=== PATIENT | female | born 1960 | race Caucasian/White ===

== ENCOUNTER 2020-06-15 13:07 | Inpatient (IN) | payer BC, OTHER ==
[~2020-06-15] VITALS: Ht 152.4 cm; Wt 74.4 kg
[2020-06-15] MEDS ORDERED: AZITHROMYCIN 500MG/NS 250 ML 250 ML IV STA (13:14)
[2020-06-15] MEDS ORDERED: CEFTRIAXONE SOD 1 GM/NS 50 ML 50 ML IV SCH (13:15)
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
[2020-06-15 13:53] LABS: BASOPHILS % 0.2 % (0.0-1.0); HEMATOCRIT 43.3 % (34.2-44.1); HEMOGLOBIN 13.9 g/dL (12.0-16.0); LYMPHOCYTES # (AUTO) 0.7 (1.0-3.2); LYMPHOCYTES % 7.7 % (18.0-39.1); MEAN CORPUSCULAR HEMOGLOBIN 28.4 pg (28-32); MEAN CORPUSCULAR HGB CONC 32.1 g/dL (31-35); MEAN CORPUSCULAR VOLUME 88.4 fL (81-99); MONOCYTES # (AUTO) 0.1 (0.2-0.8); MONOCYTES % 1.5 % (4.4-11.3); NEUTROPHILS # (AUTO) 7.6 (2.1-6.9); NEUTROPHILS % 89.8 % (38.7-80.0); PLATELET COUNT 259 x10e3/uL (140-360); RED CELL DISTRIBUTION WIDTH 14.5 % (11.7-14.4)
[2020-06-15 14:19] LABS: ALANINE AMINOTRANSFERASE 57 IU/L (0-55); ALBUMIN 3.6 g/dL (3.5-5.0); ALBUMIN/GLOBULIN RATIO 0.9 (0.8-2.0); ALKALINE PHOSPHATASE 92 IU/L (40-150); ANION GAP 17.8 mmol/L (8-16); BLOOD UREA NITROGEN 12 mg/dL (7-26); BUN/CREATININE RATIO 15 (6-25); CALCIUM 9.4 mg/dL (8.4-10.2); CARBON DIOXIDE 25 mmol/L (22-29); CHLORIDE 101 mmol/L (98-107); CREATINE KINASE 267 IU/L (29-168); CREATININE, SERUM 0.78 mg/dL (0.57-1.11); EST GLOMERULAR FILTRATION RATE > 60 ML/MIN (60-); GLUCOSE 115 mg/dL (74-118); POTASSIUM 3.8 mmol/L (3.5-5.1); SODIUM 140 mmol/L (136-145)
[2020-06-15] MEDS ORDERED: AZITHROMYCIN 250MG/NS 100 ML 100 ML IV SCH (14:30)
--- NOTE | 2020-06-15 14:47 | Diagnostic Imaging Report ---
X-ray chest frontal view History: Covid positive Comparison: None Findings: Lines and tubes: Not applicable Central airways: Unremarkable Cardiac silhouette: Unremarkable Mediastinal silhouettes: Unremarkable Pleura: No pleural effusion, pneumothorax or thickening Diaphragms: Unremarkable Lungs: . Patchy opacities predominantly in the right lower lung zone and peripherally are visualized. There is also prominence of the interstitial markings in the right perihilar zone. Skeletal structures: Unremarkable Extrathoracic soft tissues: Unremarkable Impression: Findings consistent with pneumonitis. Signed by: Truman Hwang MD on 06/15/2020 2:44 PM
[2020-06-15 16:28] VITALS: BP 124/76
[2020-06-15 16:37] VITALS: BP 124/74
[2020-06-15] MEDS ORDERED: ENOXAPARIN SOD INJ 40 MG/0.4 ML SYR SC ONE (17:15)
[2020-06-15] MEDS: ASCORBIC ACID 500 MG TAB PO SCH (18:38)
[2020-06-15] MEDS ORDERED: IOPAMIDOL 370 MG/ML 200 ML INFUS..BTL INJ ONE (18:38)
[2020-06-15] MEDS ORDERED: SODIUM CHLORIDE 0.9% 50ML 50 ML ONE (18:38)
--- NOTE | 2020-06-15 18:56 | Diagnostic Imaging Report ---
EXAM: CT Chest WITH contrast 06/15/2020 5:20 PM INDICATION: Shortness of breath suspicious for pulmonary embolism. COMPARISON: Same day chest x-ray. TECHNIQUE: Chest was scanned utilizing a multidetector helical scanner from the lung apex through the level of the adrenal glands with administration of IV contrast. Coronal and sagittal reformations were obtained. Routine protocol was performed. IV CONTRAST: 100 mL of Omnipaque 300 COMPLICATIONS: None RADIATION DOSE: Total DLP: 1275 mGy*cm Estimated effective dose: (DLP x 0.014 x size factor) mSv CTDIvol has been reviewed. It is below the limits set by the Radiation Protocol Committee (RPC). Dose modulation, iterative reconstruction, and/or weight based adjustment of the mA/kV was utilized to reduce the radiation dose to as low as reasonably achievable. FINDINGS: LINES/ TUBES: None. VASCULAR: There are no filling defects within the pulmonary arteries to the segmental level. The pulmonary trunk has normal caliber measuring 2.3 cm. The ascending and descending aorta have normal enhancement and caliber measuring 3.2 cm and 2.2 cm, respectively. There is mild atherosclerotic calcification of the thoracic aortic arch. LUNGS AND AIRWAYS: There is multifocal patchy groundglass opacities throughout both lungs superimposed bibasilar atelectasis. The central airways are patent. PLEURA: The pleural spaces are clear. HEART AND MEDIASTINUM: The thyroid gland is normal. No mediastinal, hilar or axillary lymphadenopathy. The heart is normal in size. There is no pericardial effusion. UPPER ABDOMEN: Unremarkable. BONES: There are mild degenerative changes in the thoracic spine. SOFT TISSUES: Unremarkable. IMPRESSION: 1. No evidence of pulmonary embolism to the segmental level. 2. Multifocal patchy groundglass opacities throughout both lungs compatible with multifocal pneumonia, likely viral. Signed by: Gordon Kumar MD on 06/15/2020 6:52 PM
[2020-06-15] MEDS ORDERED: ALBUTEROL/IPRATROPIUM 3 ML NEB NEB SCH (19:00)
[2020-06-15] MEDS ORDERED: DEXAMETHASONE4 MG PO (19:12)
[2020-06-15] MEDS ORDERED: ABILIFY5 MG PO (19:12)
[2020-06-15] MEDS ORDERED: MULTI-VITAMIN1 EACH (19:12)
[2020-06-15] MEDS ORDERED: ALPRAZOLAM1 MG PO (19:12)
[2020-06-15] MEDS ORDERED: ADDERALL 30 MG30 MG (19:12)
[2020-06-15] MEDS ORDERED: AMBIEN10 MG PO (19:12)
--- NOTE | 2020-06-15 19:17 | Diagnostic Imaging Report ---
Examination: CT head without contrast Clinical Indication: ^FOLLOW UP ON TRAUMA ^[id number] ^[id number] Technique: Transaxial noncontrast images from the skull base through the vertex were obtained. Sagittal and coronal reformatted images were done. Comparison: 03/04/2013. Findings: Scalp: No abnormalities. Bones: Intact. No fractures. No blastic or lytic lesions. Brain sulci: Appropriate for patient's age. Ventricles: Normal in size and configuration. No hydrocephalus. Parenchyma: No abnormal densities. No masses, hemorrhage, or acute vascular insults. Extra-axial spaces: No abnormal density or fluid collection. Suprasellar region: No abnormalities. Craniocervical junction: The foramen magnum is patent. No Chiari one malformation. Incidental findings: None. Impression: No new acute intracranial finding when compared to prior head CT dated 03/04/2013. Signed by: Dr. Tracy Ledesma M.D. on 06/15/2020 7:14 PM
--- NOTE | 2020-06-15 19:20 | NUR ---
Bedside shift report received from day nurse. Pt sitting up in bed. Pt denies pain or discomfort at this time. No distress noted. Instructed pt to call for help. Call light within reach.
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
[2020-06-15] MEDS ORDERED: ZOLPIDEM TARTRATE 10 MG TAB PO PRN (20:00)
--- NOTE | 2020-06-15 20:00 | NUR ---
Spoke with Dr. Lantigua at 1999. Notified Dr. Lantigua of elevated Lactic Acid level. Also notified Dr. Lantigua of CXR, Chest CT, and Brain CT results. New orders received to draw 0500 CBC, CMP, Magnesium, and Lactic Acid level. Pt requested to take her own Ambien at bedtime; Per Dr. Lantigua, it is ok for pt to take her own Ambien per his orders as follows: Ambien 10mg PO QHS PRN Insomnia.
--- NOTE | 2020-06-15 20:45 | NUR ---
Pt c/o right AC IV site itching that she r/t the dressing/tape. Dressing and tape removed, new dressing and tape applied to site. Bruising/redness noted around IV site; Pt states that it has been that way. IV flushed with 10mL NS; IV patent, pt denies pain, burning, or other discomforts at this time.
[2020-06-15 20:58] VITALS: BP 117/71
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
[2020-06-15 22:14] LABS: CREATINE KINASE MB 2.2 ng/mL (0-5.0)
--- NOTE | 2020-06-15 22:32 | NUR ---
Order for Sputum Culture noted in orders. Cup given to pt and instructed on collection of sputum culture. Pt will notify us when she has a sample.
[2020-06-15 23:52] VITALS: BP 126/77
[2020-06-16] VITALS (10 sets, daily range): BP systolic 70–143; BP diastolic 52–86
--- NOTE | 2020-06-16 00:46 | NUR ---
Pt provided sputum sample. Sputum sample delivered to lab.
[2020-06-16] MEDS: IPRATROPIUM/ALBUTEROL SULFATE 4 GM INH INH SCH ×4 (01:00→19:53)
[2020-06-16 04:59] LABS: BASOPHILS % 0.1 % (0.0-1.0); EOSINOPHILS % 0.1 % (0.0-6.0); HEMATOCRIT 38.7 % (34.2-44.1); HEMOGLOBIN 12.7 g/dL (12.0-16.0); LYMPHOCYTES # (AUTO) 1.4 (1.0-3.2); MEAN CORPUSCULAR HEMOGLOBIN 28.9 pg (28-32); MEAN CORPUSCULAR HGB CONC 32.8 g/dL (31-35); MEAN CORPUSCULAR VOLUME 88.2 fL (81-99); MONOCYTES # (AUTO) 0.2 (0.2-0.8); MONOCYTES % 2.5 % (4.4-11.3); NEUTROPHILS # (AUTO) 5.9 (2.1-6.9); NEUTROPHILS % 78.4 % (38.7-80.0); PLATELET COUNT 247 x10e3/uL (140-360); RED BLOOD COUNT 4.39 x10e6/uL (3.6-5.1)
[2020-06-16 05:17] LABS: ALANINE AMINOTRANSFERASE 47 IU/L (0-55); ALBUMIN/GLOBULIN RATIO 0.8 (0.8-2.0); ALKALINE PHOSPHATASE 81 IU/L (40-150); ANION GAP 15.8 mmol/L (8-16); BLOOD UREA NITROGEN 14 mg/dL (7-26); BUN/CREATININE RATIO 20 (6-25); CARBON DIOXIDE 24 mmol/L (22-29); CHLORIDE 103 mmol/L (98-107); CREATININE, SERUM 0.69 mg/dL (0.57-1.11); EST GLOMERULAR FILTRATION RATE > 60 ML/MIN (60-); GLUCOSE 117 mg/dL (74-118); MAGNESIUM 2.1 MG/DL (1.3-2.1); POTASSIUM 3.8 mmol/L (3.5-5.1); SODIUM 139 mmol/L (136-145)
--- NOTE | 2020-06-16 05:40 | NUR ---
Dr. Lantigua at bedside talking with pt about her POC.
[2020-06-16 05:51] LABS: CREATINE KINASE MB 2.2 ng/mL (0-5.0)
[2020-06-16] MEDS: ALPRAZOLAM 1 MG TAB PO SCH ×3 (06:25→17:09)
--- NOTE | 2020-06-16 07:55 | NUR ---
RECEIVED PATIENT RESTING IN BED. PT IN NO DISTRESS. NO C/O PAIN VERBALIZED AT THIS TIME. TELE APPLIED. CALL LIGHT WITHIN REACH. WILL CONTINUE TO MONITOR.
[2020-06-16] MEDS: ASCORBIC ACID 500 MG TAB PO SCH ×2 (08:00→17:09)
[2020-06-16] MEDS: CEFTRIAXONE SOD 2 GM/NS 100 ML 100 ML IV SCH (08:00)
[2020-06-16] MEDS: ZINC SULFATE 220 MG CAP PO SCH (08:00)
--- NOTE | 2020-06-16 08:35 | History and Physical ---
REASON FOR ADMISSION: 1. COVID-19 pneumonia. 2. Acute respiratory failure with hypoxia. HISTORY OF PRESENT ILLNESS: The patient is a 60-year-old lady who was diagnosed probably as an outpatient with COVID-19, who unfortunately started having worsening shortness of breath and saturations in the mid 80%, so she was brought in and admitted for further evaluation and treatment. PAST MEDICAL HISTORY: Significant for attention deficit disorder and anxiety disorder. MEDICATIONS: See MAR. ALLERGIES: NONE. SOCIAL HISTORY: Lives at home with her . Nonsmoker, nondrinker. FAMILY HISTORY: Hypertension. PHYSICAL EXAMINATION: VITAL SIGNS: Temperature 98.6, blood pressure 136/74, pulse 74, sats 92% on room air. GENERAL: She does not appear to be in respiratory distress at this moment. NECK: Supple. CARDIOVASCULAR: Regular rate and rhythm. LUNGS: Bilateral rhonchi noted. ABDOMEN: Good bowel sounds. Soft, nontender. EXTREMITIES: No clubbing or cyanosis. NEUROLOGIC: Nonfocal. ASSESSMENT/PLAN: 1. COVID-19 pneumonia. We will consult Infectious Disease. Continue with antibiotics. 2. Acute respiratory failure with hypoxia. We will continue to monitor. Pulmonary has been evaluating her. 3. Anxiety disorder. Continue with her Xanax. 4. Attention deficit disorder. We will continue to monitor at this time and hold off her medication. Please see hospital chart for full details. MD ALEXANDRA Casanova/LORY /[id number]
[2020-06-16] MEDS ORDERED: ZINC SULFATE 50 MG CAP PO SCH (09:00)
[2020-06-16] MEDS: AZITHROMYCIN 500MG/NS 250 ML 250 ML IV SCH (09:00)
--- NOTE | 2020-06-16 09:34 | Diagnostic Imaging Report ---
EXAMINATION: CHEST SINGLE (PORTABLE) INDICATION: Viral pneumonia COMPARISON: Chest radiograph 06/15/2020, chest CT 06/15/2020 FINDINGS: LINES/TUBES:EKG leads overlie the chest. LUNGS:The lungs are moderately inflated. Unchanged bilateral lower lung predominant hazy opacities. PLEURA:No pleural effusion or pneumothorax. MEDIASTINUM:The cardiomediastinal silhouette appears normal in size and shape. BONES/SOFT TISSUES:No acute osseous injury. ABDOMEN:No free air under the diaphragm. IMPRESSION: Unchanged bilateral lower lung predominant hazy opacities correspond with groundglass opacity seen on CT, in keeping with clinical history of viral pneumonia. Signed by: Yo Jackson MD on 06/16/2020 9:30 AM
--- NOTE | 2020-06-16 12:55 | NUR ---
SPOKE TO JUAN RAMON COLEY PAGE TO DR. ROBERT. PT COMPLAINS OF MINIMAL NAUSEA AND 4/10 INTERMITTENT HEADACHE.
[2020-06-16 14:16] LABS: CREATINE KINASE 211 IU/L (29-168)
[2020-06-16] MEDS: TRAMADOL HCL 50 MG TAB PO PRN ×2 (14:24→14:58)
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
[2020-06-16] MEDS ORDERED: ENOXAPARIN SOD INJ 40 MG/0.4 ML SYR SC SCH (17:00)
--- NOTE | 2020-06-16 18:50 | NUR ---
PATIENT IN STABLE CONDITION. PT IN NO DISTRESS. RESPIRATIONS EVEN AND BREATHING UNLABORED. NO C/O PAIN VERBALIZED AT THIS TIME. REPORT GIVEN TO ONCOMING NURSE. Addendum: 06/16/20 at 1908 by Janiya Olivas RN TELE APPLIED.
--- NOTE | 2020-06-16 19:10 | NUR ---
Bedside shift report received from day shift nurse. Pt sitting up in bed. Pt denies pain or discomfort at this time. No distress noted. Instructed pt to call for assistance when needed. Call light within reach.
[2020-06-16] MEDS: ARIPIPRAZOLE 5 MG TABLET PO SCH (20:19)
--- NOTE | 2020-06-16 20:43 | NUR ---
Pt's BP 70/56, Temperature 102.7; Vitals taken again at 2054 with same machine-BP 96/52, Temperature 99.0.
[2020-06-16] MEDS: ENOXAPARIN SOD INJ 40 MG/0.4 ML SYR SC SCH (20:50)
--- NOTE | 2020-06-16 21:00 | NUR ---
Notified Dr. Lantigua of pt's low BP and elevated temperature. Also informed Dr. Lantigua that pt is drowsy and not as alert as she had been previously but sluggishly responds to verbal stimuli. Informed Dr. Lantigua that pt's skin appears red and is warm to touch. New orders received from Dr. Lantigua as follows: Give NS 500mL bolus now STAT x1; Give Tylenol 650mg PO x1 dose now STAT for fever and every [address] Lantigua continue to monitor pt.
[2020-06-16] MEDS ORDERED: ACETAMINOPHEN 650 MG SUPP PR ONE (21:01)
[2020-06-16] MEDS ORDERED: SODIUM CHLORIDE 0.9% 1000ML 1,000 ML ONE (21:01)
[2020-06-16] MEDS ORDERED: ACETAMINOPHEN 325 MG TAB ONE (21:02)
[2020-06-16] MEDS ORDERED: SODIUM CHLORIDE 0.9% 500ML 500 ML IV STA (21:03)
--- NOTE | 2020-06-16 21:13 | NUR ---
Informed pt of new orders received from Dr. Lantigua and educated pt regarding orders. NS 500mL bolus started via right forearm peripheral IV as ordered.
[2020-06-16] MEDS: ACETAMINOPHEN 325 MG TAB PO PRN (21:24)
--- NOTE | 2020-06-16 21:24 | NUR ---
Tylenol 650mg PO given for fever as ordered by Dr. Lantigua.
[2020-06-17] VITALS (9 sets, daily range): BP systolic 89–128; BP diastolic 57–78
--- NOTE | 2020-06-17 | NUR ---
0000 scheduled Alprazolam held r/t vital signs and drowsiness. 0000 Vitals are as follows: BP 94/73, Respirations 24, Pulse 85, Temperature 98.1, O2 Sats 91% on 2L/NC. Pt denies SOB but states she is sleepy. Pt is intermittently confused. Pt asked if she was moved to another room, then suddenly she knew exactly where she was. When asked at this time, pt stated she did not know what or where the call light was or how to use it. Re-educated pt and re-oriented pt to room and surroundings. Instructed pt to use call light as a test-Pt demonstrated back. Instructed pt to call if she needs any assistance and not to get up without calling for help/assistance.
[2020-06-17] MEDS: IPRATROPIUM/ALBUTEROL SULFATE 4 GM INH INH SCH ×4 (01:00→18:31)
--- NOTE | 2020-06-17 04:00 | NUR ---
Pt alert and oriented to person, place, and time. Pt denies pain or discomfort. Pt denies SOB. Pt is able to carry on a full conversation with oxygen saturation at 90% or greater. Pt c/o cough since waking. Pt states she remembers having periods of confusion last night. Pt is inquiring about how much longer she will have to stay in the hospital. Instructed pt to verbalize her concerns to Dr. Lantigua as he will have a more accurate response. Pt verbalized understanding and denies other further questions or concerns at this time. Addendum: 06/17/20 at 0433 by JUSTIN PETERSON RN Amended: Links added.
--- NOTE | 2020-06-17 05:27 | NUR ---
Dr. Lantigua at bedside to discuss POC with pt.
[2020-06-17] MEDS: ALPRAZOLAM 1 MG TAB PO SCH ×4 (05:50→17:25)
--- NOTE | 2020-06-17 07:00 | NUR ---
REPORT RECEIVED FROM KINDERGARTEN INSTRUCTIONAL ASSISTANT RN.
--- NOTE | 2020-06-17 08:00 | NUR ---
PT HAD A TEMP OF 101 THIS AM. TYLENOL GIVEN FOR TEMP./
[2020-06-17] MEDS ORDERED: CEPACOL SORE THROAT LOZENGES PO PRN (08:30)
[2020-06-17] MEDS ORDERED: CHLORASEPTIC SPRAY 177 ML BTL MM PRN (09:00)
[2020-06-17 09:03] LABS: BASOPHILS % 0.1 % (0.0-1.0); EOSINOPHILS % 0.1 % (0.0-6.0); HEMATOCRIT 41.2 % (34.2-44.1); HEMOGLOBIN 13.1 g/dL (12.0-16.0); LYMPHOCYTES # (AUTO) 1.7 (1.0-3.2); LYMPHOCYTES % 24.2 % (18.0-39.1); MEAN CORPUSCULAR HEMOGLOBIN 28.7 pg (28-32); MEAN CORPUSCULAR HGB CONC 31.8 g/dL (31-35); MEAN CORPUSCULAR VOLUME 90.4 fL (81-99); MONOCYTES # (AUTO) 0.1 (0.2-0.8); MONOCYTES % 1.4 % (4.4-11.3); NEUTROPHILS # (AUTO) 5.1 (2.1-6.9); NEUTROPHILS % 72.8 % (38.7-80.0); PLATELET COUNT 246 x10e3/uL (140-360); RED BLOOD COUNT 4.56 x10e6/uL (3.6-5.1); RED CELL DISTRIBUTION WIDTH 14.6 % (11.7-14.4)
--- NOTE | 2020-06-17 09:04 | Diagnostic Imaging Report ---
TECHNIQUE: Frontal view of the chest. INDICATION: ^CAP ^[id number] ^[id number] COMPARISON: Prior day. DISCUSSION: Limited evaluation due to portable technique. Lines and hardware: Overlying EKG leads are again noted. Heart and mediastinum: Stable. Lungs and pleura: Stable bilateral lower lobe prominent hazy airspace opacities. Negative for large effusion or pneumothorax. Soft tissues and bones: No acute abnormality. IMPRESSION: Stable exam. Signed by: Silvestre Millard MD on 06/17/2020 9:01 AM
[2020-06-17 09:22] LABS: ALANINE AMINOTRANSFERASE 41 IU/L (0-55); ALBUMIN 2.8 g/dL (3.5-5.0); ALBUMIN/GLOBULIN RATIO 0.7 (0.8-2.0); ALKALINE PHOSPHATASE 83 IU/L (40-150); ANION GAP 13.9 mmol/L (8-16); BLOOD UREA NITROGEN 11 mg/dL (7-26); BUN/CREATININE RATIO 15 (6-25); CALCIUM 8.7 mg/dL (8.4-10.2); CARBON DIOXIDE 25 mmol/L (22-29); CHLORIDE 102 mmol/L (98-107); CREATININE, SERUM 0.75 mg/dL (0.57-1.11); EST GLOMERULAR FILTRATION RATE > 60 ML/MIN (60-); GLUCOSE 89 mg/dL (74-118); POTASSIUM 3.9 mmol/L (3.5-5.1); SODIUM 137 mmol/L (136-145)
[2020-06-17] MEDS: AZITHROMYCIN 500MG/NS 250 ML 250 ML IV SCH (09:43)
[2020-06-17] MEDS: CEFTRIAXONE SOD 2 GM/NS 100 ML 100 ML IV SCH (09:43)
[2020-06-17] MEDS: ZINC SULFATE 220 MG CAP PO SCH (09:43)
[2020-06-17] MEDS: ASCORBIC ACID 500 MG TAB PO SCH ×2 (09:43→17:25)
[2020-06-17] MEDS: DEXAMETHASONE SOD PHOS INJ 4 MG/ML VIAL IV SCH (12:00)
--- NOTE | 2020-06-17 12:08 | Progress Note ---
DATE: SUBJECTIVE: Ms. Morgan is doing about the same, comfortable. She had a fever of 101 earlier. She is still on oxygen, it is up to 3 L. No new complaints. The patient remains on azithromycin, Rocephin, Tylenol, Ultram, ascorbic acid, and Lovenox. Her blood cultures are pending. Chest x-ray shows stable bilateral lobe hazy airspace zone. OBJECTIVE: GENERAL: Currently, alert and oriented. VITAL SIGNS: Stable, currently afebrile, but had fever earlier. HEENT: She is not icteric. NECK: Supple. CHEST: Crackles bilateral. COR: S1 and S2. ABDOMEN: Soft. Bowel sounds present. EXTREMITIES: No edema. SKIN: No rash. IMPRESSION AND PLAN: Hypoxemic today. We will start dexamethasone. We will follow. MD MYNOR Castle/LORY /[id number]
[2020-06-17] MEDS: TRAMADOL HCL 50 MG TAB PO PRN (17:26)
--- OUTSIDE RECORDS SUMMARY | 2020-06-17 19:03 | XMS REPORT | Clinical Summary ---
Author Author [facility] Address Unknown Phone Unavailable Care Team Providers Care Forensic Science Examiner Name Role Phone PCP Unavailable Allergies Not on File Medications Not on file Active Problems Not on file Social History Date Tobacco Use Types Packs/Day Years Used Never Assessed Sex Assigned at Date Recorded Not on file Last Filed Vital Signs Not on file Plan of Treatment Not on file Results Not on fileafter 06/15/2019 Insurance Type Payer Benefit Subscriber ID Effective Phone Address Plan / Dates Group HMO/POS [employer] - MGD CARE CIGNA [facility] [id number] NETWORK resent
--- NOTE | 2020-06-17 19:15 | NUR ---
SBAR RECEIVED FROM DAYSHIFT RN, PATIENT RESTING IN BED. PT IN NO DISTRESS. NO C/O PAIN VERBALIZED AT THIS TIME. TELE IN PLACE AND ACTIVE, REMAIN ON DROPLET PRECAUTION R/T COVID-19 RESULT. PATIENT SEEN WALKING IN ROOM C/O EXTERTIONAL DYSPNEA, EDUCATION GIVEN ON REMAINING SAFE, OFFER BEDSIDE COMMODE, REFUSED, CALL LIGHT WITHIN REACH. WILL CONTINUE TO MONITOR.
[2020-06-17] MEDS: ARIPIPRAZOLE 5 MG TABLET PO SCH (20:50)
[2020-06-18] VITALS (11 sets, daily range): BP systolic 82–116; BP diastolic 45–85
--- NOTE | 2020-06-18 | NUR ---
ROUTINE HOURLY ROUNDING COMPLETED PATIENT AWAKE ALERT, C/O NO OXYGEN PUMPING THRU THE NASAL CANNULA, PATIENT COMFORT LEVEL INCREASED, CALL LIGHT WITHIN REACH
[2020-06-18] MEDS: ALPRAZOLAM 1 MG TAB PO SCH ×5 (00:58→23:47)
[2020-06-18] MEDS: IPRATROPIUM/ALBUTEROL SULFATE 4 GM INH INH SCH ×4 (01:00→21:00)
[2020-06-18] MEDS: TRAMADOL HCL 50 MG TAB PO PRN ×3 (04:19→22:50)
--- NOTE | 2020-06-18 04:19 | NUR ---
HOURLY ROUNDING COMPLETED, PATIENT UP WALKING IN ROOM, REMAIN ON OXYGEN, C/O EXTERTIONAL DYSPNEA, OXYGEN LEVEL INCREASED PER OXYGEN PROTOCOL, PATIENT COMFORT LEVEL INCREASED, GIVEN WATER, JUICE AND BACK RUB, PATIENT NOTED WITH SLIGHT EXPRESSIVE APHASIA, WARM BLANKET GIVEN C/O COLD ENVIRONMENT, C/O BACK PAIN, PT REQUESTING PAIN MEDICATION, REQUEST CARRIED OUT
[2020-06-18 05:34] LABS: BASOPHILS % 0.1 % (0.0-1.0); EOSINOPHILS # (AUTO) 0.1 (0.0-0.4); EOSINOPHILS % 0.6 % (0.0-6.0); HEMATOCRIT 42.1 % (34.2-44.1); HEMOGLOBIN 13.3 g/dL (12.0-16.0); LYMPHOCYTES # (AUTO) 0.9 (1.0-3.2); LYMPHOCYTES % 11.3 % (18.0-39.1); MEAN CORPUSCULAR HEMOGLOBIN 28.9 pg (28-32); MEAN CORPUSCULAR HGB CONC 31.6 g/dL (31-35); MEAN CORPUSCULAR VOLUME 91.5 fL (81-99); MONOCYTES # (AUTO) 0.1 (0.2-0.8); MONOCYTES % 1.2 % (4.4-11.3); NEUTROPHILS # (AUTO) 6.9 (2.1-6.9); NEUTROPHILS % 85.3 % (38.7-80.0); PLATELET COUNT 216 x10e3/uL (140-360); RED CELL DISTRIBUTION WIDTH 14.3 % (11.7-14.4)
[2020-06-18 05:54] LABS: ALANINE AMINOTRANSFERASE 40 IU/L (0-55); ALBUMIN 2.7 g/dL (3.5-5.0); ALBUMIN/GLOBULIN RATIO 0.6 (0.8-2.0); ALKALINE PHOSPHATASE 77 IU/L (40-150); ANION GAP 16.4 mmol/L (8-16); BLOOD UREA NITROGEN 16 mg/dL (7-26); BUN/CREATININE RATIO 21 (6-25); CARBON DIOXIDE 20 mmol/L (22-29); CHLORIDE 104 mmol/L (98-107); CREATININE, SERUM 0.75 mg/dL (0.57-1.11); EST GLOMERULAR FILTRATION RATE > 60 ML/MIN (60-); GLUCOSE 143 mg/dL (74-118); POTASSIUM 4.4 mmol/L (3.5-5.1); SODIUM 136 mmol/L (136-145)
--- NOTE | 2020-06-18 07:41 | NUR ---
WALKING ROUNDING COMPLETED, NO DISTRESS NOTED, PATIENT STABLE, ENDORSED TO DAYSHIFT, CALL LIGHT WITHIN REACH
--- NOTE | 2020-06-18 08:50 | Diagnostic Imaging Report ---
EXAMINATION: CHEST SINGLE (PORTABLE) INDICATION: Pneumonia COMPARISON: Chest radiograph 06/17/2020 FINDINGS: LINES/TUBES:EKG leads overlie the chest. LUNGS:The lungs are moderately inflated. Increasing bilateral lower lung predominant patchy opacities. PLEURA:No pleural effusion or pneumothorax. MEDIASTINUM:The cardiomediastinal silhouette appears normal in size and shape. BONES/SOFT TISSUES:No acute osseous injury. ABDOMEN:No free air under the diaphragm. IMPRESSION: Increasing bilateral lower lung predominant patchy opacities concerning for worsening pneumonia. Signed by: Yo Jackson MD on 06/18/2020 8:46 AM
[2020-06-18] MEDS: ENOXAPARIN SOD INJ 40 MG/0.4 ML SYR SC SCH ×2 (09:00→22:06)
[2020-06-18] MEDS: CEFTRIAXONE SOD 2 GM/NS 100 ML 100 ML IV SCH (09:05)
--- NOTE | 2020-06-18 09:34 | NUR ---
Cheryle MENESES CM called. [facility] [phone] ext [phone]. Says they use [facility] for HH / DMEs.
[2020-06-18] MEDS: ZINC SULFATE 220 MG CAP PO SCH (09:48)
[2020-06-18] MEDS: ASCORBIC ACID 500 MG TAB PO SCH ×2 (09:48→17:03)
[2020-06-18] MEDS: AZITHROMYCIN 500MG/NS 250 ML 250 ML IV SCH (11:14)
[2020-06-18] MEDS ORDERED: REMDESIVIR 200MG/NS 100ML 200 MG in SODIUM CHLORIDE 0.9% 100 ML 100 ML IV ONE (11:45)
[2020-06-18] MEDS ORDERED: REMDESIVIR 100MG/NS 100ML 100 MG in SODIUM CHLORIDE 0.9% 100 ML 100 ML IV SCH (11:45)
--- NOTE | 2020-06-18 12:04 | Progress Note ---
DATE: SUBJECTIVE: Ms. Morgan, who is currently remains on the floor. She remains on 3 L, remains shortness of breath. She says she is feeling feverish, however, there was no fever documented since June 17. The patient, who is currently on Ultram, azithromycin, Rocephin, Abilify, dexamethasone, and Lovenox. LABORATORY DATA: Her cultures are negative. Her white count is 8.04, hemoglobin 13, and creatinine 0.75. REVIEW OF SYSTEMS: Just, she is aching all over. She is still not feeling well. IMPRESSION: COVID-19, respiratory failure, superimposed bacterial pneumonia, seems to be doing well on dexamethasone, to finish 10 days. Oxygen as needed. To finish course of antibiotic. Lovenox as ordered. To continue with supportive care as ordered. We will follow. MD MYNOR Castle/LORY /[id number]
--- NOTE | 2020-06-18 12:08 | Progress Note ---
DATE: ADDENDUM: Otherwise, the patient apparently was sick on the , she was exposed on the . She was tested on , but her symptoms started on , and she became short of breath yesterday. So, I talked to her today about remdesivir, I shared with her the fact. The patient understands that was recently approved. She agreed to it, she can start at any time. We will give it to her if once available. MD MYNOR Castle/LORY /[id number]
[2020-06-18] MEDS: DEXAMETHASONE SOD PHOS INJ 4 MG/ML VIAL IV SCH (13:34)
[2020-06-18 14:01] LABS: CLARITY,URINE CLEAR (CLEAR); COLOR,URINE YELLOW (YELLOW)
[2020-06-18 14:02] LABS: BILIRUBIN,URINE NEGATIVE (NEGATIVE); KETONES,URINE NEGATIVE (NEGATIVE); LEUKOCYTE ESTERASE ,URINE NEGATIVE (NEGATIVE); NITRITE,URINE NEGATIVE (NEGATIVE); PROTEIN,URINE DIPSTICK NEGATIVE (NEGATIVE); URINE UROBILINOGEN 0.2 mg/dL (0.2 - 1)
[2020-06-18 14:10] LABS: BACTERIA,URINE FEW /HPF; EPITHELIAL CELLS,URINE RARE /LPF; RBC,URINE 0-5 /HPF (0-5); WBC,URINE (MAN) 0-5 /HPF (0-5)
[2020-06-18] MEDS: ARIPIPRAZOLE 5 MG TABLET PO SCH (22:06)
[2020-06-19] VITALS (8 sets, daily range): BP systolic 90–119; BP diastolic 64–73
[2020-06-19] MEDS: IPRATROPIUM/ALBUTEROL SULFATE 4 GM INH INH SCH ×4 (02:10→21:40)
[2020-06-19] MEDS: ALPRAZOLAM 1 MG TAB PO SCH ×4 (05:06→23:00)
[2020-06-19 06:46] LABS: BASOPHILS % 0.4 % (0.0-1.0); EOSINOPHILS % 0.4 % (0.0-6.0); HEMATOCRIT 38.4 % (34.2-44.1); HEMOGLOBIN 12.3 g/dL (12.0-16.0); LYMPHOCYTES # (AUTO) 1.7 (1.0-3.2); LYMPHOCYTES % 18.1 % (18.0-39.1); MEAN CORPUSCULAR HEMOGLOBIN 28.2 pg (28-32); MEAN CORPUSCULAR VOLUME 88.1 fL (81-99); MONOCYTES # (AUTO) 0.4 (0.2-0.8); MONOCYTES % 3.8 % (4.4-11.3); NEUTROPHILS % 73.6 % (38.7-80.0); PLATELET COUNT 301 x10e3/uL (140-360); RED BLOOD COUNT 4.36 x10e6/uL (3.6-5.1); RED CELL DISTRIBUTION WIDTH 14.1 % (11.7-14.4)
[2020-06-19 07:14] LABS: ALANINE AMINOTRANSFERASE 40 IU/L (0-55); ALBUMIN 2.6 g/dL (3.5-5.0); ALBUMIN/GLOBULIN RATIO 0.7 (0.8-2.0); ALKALINE PHOSPHATASE 80 IU/L (40-150); ANION GAP 12.2 mmol/L (8-16); BLOOD UREA NITROGEN 17 mg/dL (7-26); BUN/CREATININE RATIO 27 (6-25); CALCIUM 8.9 mg/dL (8.4-10.2); CARBON DIOXIDE 23 mmol/L (22-29); CHLORIDE 107 mmol/L (98-107); CREATININE, SERUM 0.64 mg/dL (0.57-1.11); EST GLOMERULAR FILTRATION RATE > 60 ML/MIN (60-); GLUCOSE 105 mg/dL (74-118); POTASSIUM 4.2 mmol/L (3.5-5.1); SODIUM 138 mmol/L (136-145)
[2020-06-19] MEDS: ASCORBIC ACID 500 MG TAB PO SCH ×2 (08:03→17:45)
[2020-06-19] MEDS: ZINC SULFATE 220 MG CAP PO SCH (08:03)
[2020-06-19] MEDS: CEFTRIAXONE SOD 2 GM/NS 100 ML 100 ML IV SCH (08:03)
[2020-06-19] MEDS: ENOXAPARIN SOD INJ 40 MG/0.4 ML SYR SC SCH ×2 (08:03→21:32)
[2020-06-19] MEDS: TRAMADOL HCL 50 MG TAB PO PRN (08:48)
[2020-06-19] MEDS: AZITHROMYCIN 500MG/NS 250 ML 250 ML IV SCH (08:56)
--- NOTE | 2020-06-19 10:13 | NUR ---
Patient seems anxious, crying and telling her arms feels so cold, Scared to start with new IV, Redirected her, IV is intact, running good.
[2020-06-19] MEDS: DEXAMETHASONE SOD PHOS INJ 4 MG/ML VIAL IV SCH (12:19)
[2020-06-19] MEDS: REMDESIVIR 100MG/NS 100ML 100 MG in SODIUM CHLORIDE 0.9% 100 ML 100 ML IV SCH (13:35)
--- NOTE | 2020-06-19 14:38 | Progress Note ---
DATE: Pulmonary followup. SUBJECTIVE: The patient is breathing okay, still requiring oxygen, was admitted on the 3rd with shortness of breath, diagnosed with COVID-19 infection. PHYSICAL EXAMINATION: VITAL SIGNS: Temperature 98, pulse of 79, blood pressure 103/69, O2 saturation 93% on 3 L. HEENT: Head atraumatic and normocephalic. CHEST: Few crackles in the bases. HEART: S1, S2 audible. LABORATORY DATA: White count of 9000, hemoglobin 12.3. Chemistry reviewed. ASSESSMENT/PLAN: Ms. Morgan is a 60-year-old female. She has COVID-19 pneumonia, on remdesivir. Continue steroids, IV antibiotic, oxygen as needed to keep the O2 saturation more than or equal to 92%. MD ROXANA Cavazos/LORY /[id number]
--- NOTE | 2020-06-19 18:11 | NUR ---
patient resting in bed, Alert with no distress, denies SOB, On O2 4L NC, Call light in reach, keep monitoring
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
[2020-06-19] MEDS: ARIPIPRAZOLE 5 MG TABLET PO SCH (21:32)
[2020-06-20] VITALS (8 sets, daily range): BP systolic 93–132; BP diastolic 58–82
[2020-06-20] MEDS: TRAMADOL HCL 50 MG TAB PO PRN ×2 (01:46→18:06)
[2020-06-20] MEDS: ALPRAZOLAM 1 MG TAB PO SCH ×3 (05:52→17:00)
--- NOTE | 2020-06-20 07:30 | NUR ---
PATIENT IS AWAKE, ALERT, AND IN STABLE CONDITION WITH NO S/S OF RESPIRATORY DISTRESS. PATIENT DENIES PAIN AT THIS TIME. TELEMETRY APPLIED. 02 APPLIED AT 5L NC. CALL LIGHT IS WITHIN REACH, PATIENT INSTRUCTED TO CALL FOR ASSISTANCE NEEDED.
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
[2020-06-20 08:00] LABS: BASOPHILS # (AUTO) 0.1 (0.0-0.1); BASOPHILS % 0.6 % (0.0-1.0); EOSINOPHILS % 0.1 % (0.0-6.0); HEMATOCRIT 39.6 % (34.2-44.1); HEMOGLOBIN 12.5 g/dL (12.0-16.0); LYMPHOCYTES % 19.9 % (18.0-39.1); MEAN CORPUSCULAR HGB CONC 31.6 g/dL (31-35); MEAN CORPUSCULAR VOLUME 88.8 fL (81-99); MONOCYTES # (AUTO) 0.4 (0.2-0.8); MONOCYTES % 4.1 % (4.4-11.3); NEUTROPHILS # (AUTO) 6.7 (2.1-6.9); NEUTROPHILS % 68.2 % (38.7-80.0); PLATELET COUNT 302 x10e3/uL (140-360); RED BLOOD COUNT 4.46 x10e6/uL (3.6-5.1); RED CELL DISTRIBUTION WIDTH 13.9 % (11.7-14.4)
[2020-06-20] MEDS: ENOXAPARIN SOD INJ 40 MG/0.4 ML SYR SC SCH ×2 (08:00→21:00)
[2020-06-20] MEDS: ASCORBIC ACID 500 MG TAB PO SCH ×2 (08:00→17:00)
[2020-06-20] MEDS: ZINC SULFATE 220 MG CAP PO SCH (08:00)
[2020-06-20] MEDS: CEFTRIAXONE SOD 2 GM/NS 100 ML 100 ML IV SCH (08:00)
[2020-06-20 08:23] LABS: ALANINE AMINOTRANSFERASE 40 IU/L (0-55); ALBUMIN 2.8 g/dL (3.5-5.0); ALBUMIN/GLOBULIN RATIO 0.7 (0.8-2.0); ALKALINE PHOSPHATASE 81 IU/L (40-150); ANION GAP 13.7 mmol/L (8-16); BLOOD UREA NITROGEN 19 mg/dL (7-26); BUN/CREATININE RATIO 29 (6-25); CALCIUM 9.3 mg/dL (8.4-10.2); CARBON DIOXIDE 22 mmol/L (22-29); CHLORIDE 105 mmol/L (98-107); CREATININE, SERUM 0.65 mg/dL (0.57-1.11); EST GLOMERULAR FILTRATION RATE > 60 ML/MIN (60-); GLUCOSE 69 mg/dL (74-118); POTASSIUM 3.7 mmol/L (3.5-5.1); SODIUM 137 mmol/L (136-145)
[2020-06-20] MEDS: AZITHROMYCIN 500MG/NS 250 ML 250 ML IV SCH (09:41)
[2020-06-20] MEDS: DEXAMETHASONE SOD PHOS INJ 4 MG/ML VIAL IV SCH (12:01)
[2020-06-20] MEDS: REMDESIVIR 100MG/NS 100ML 100 MG in SODIUM CHLORIDE 0.9% 100 ML 100 ML IV SCH (14:15)
[2020-06-20] MEDS: IPRATROPIUM/ALBUTEROL SULFATE 4 GM INH INH SCH (19:58)
[2020-06-20] MEDS: ZOLPIDEM TARTRATE 10 MG TAB PO PRN (21:15)
[2020-06-20] MEDS: ARIPIPRAZOLE 5 MG TABLET PO SCH (21:15)
[2020-06-21] VITALS (8 sets, daily range): BP systolic 100–115; BP diastolic 62–78
[2020-06-21] MEDS: IPRATROPIUM/ALBUTEROL SULFATE 4 GM INH INH SCH ×4 (01:10→19:00)
[2020-06-21] MEDS: ALPRAZOLAM 1 MG TAB PO SCH ×4 (05:51→18:23)
[2020-06-21 06:27] LABS: BASOPHILS # (AUTO) 0.1 (0.0-0.1); BASOPHILS % 0.6 % (0.0-1.0); EOSINOPHILS % 0.1 % (0.0-6.0); HEMATOCRIT 37.7 % (34.2-44.1); HEMOGLOBIN 12.1 g/dL (12.0-16.0); LYMPHOCYTES % 18.7 % (18.0-39.1); MEAN CORPUSCULAR HEMOGLOBIN 28.2 pg (28-32); MEAN CORPUSCULAR HGB CONC 32.1 g/dL (31-35); MEAN CORPUSCULAR VOLUME 87.9 fL (81-99); MONOCYTES # (AUTO) 0.4 (0.2-0.8); MONOCYTES % 3.6 % (4.4-11.3); NEUTROPHILS # (AUTO) 7.4 (2.1-6.9); NEUTROPHILS % 69.2 % (38.7-80.0); PLATELET COUNT 351 x10e3/uL (140-360); RED BLOOD COUNT 4.29 x10e6/uL (3.6-5.1); RED CELL DISTRIBUTION WIDTH 13.9 % (11.7-14.4)
[2020-06-21 07:03] LABS: ALANINE AMINOTRANSFERASE 40 IU/L (0-55); ALBUMIN 2.7 g/dL (3.5-5.0); ALBUMIN/GLOBULIN RATIO 0.8 (0.8-2.0); ALKALINE PHOSPHATASE 83 IU/L (40-150); ANION GAP 13.7 mmol/L (8-16); BLOOD UREA NITROGEN 19 mg/dL (7-26); BUN/CREATININE RATIO 28 (6-25); CALCIUM 8.8 mg/dL (8.4-10.2); CARBON DIOXIDE 23 mmol/L (22-29); CHLORIDE 106 mmol/L (98-107); CREATININE, SERUM 0.67 mg/dL (0.57-1.11); EST GLOMERULAR FILTRATION RATE > 60 ML/MIN (60-); GLUCOSE 99 mg/dL (74-118); POTASSIUM 3.7 mmol/L (3.5-5.1); SODIUM 139 mmol/L (136-145)
--- NOTE | 2020-06-21 07:43 | NUR ---
PATIENT IN BED RESTING WITH EYES CLOSED, NO DISTRESS NOTED. O2 IN PLACE VIA N/C. BED IN LOWER POSITION, CALL LIGHT AT REACH.
[2020-06-21] MEDS: ASCORBIC ACID 500 MG TAB PO SCH ×2 (09:29→17:41)
[2020-06-21] MEDS: ENOXAPARIN SOD INJ 40 MG/0.4 ML SYR SC SCH ×2 (09:29→20:10)
[2020-06-21] MEDS: ZINC SULFATE 220 MG CAP PO SCH (09:29)
[2020-06-21] MEDS: TRAMADOL HCL 50 MG TAB PO PRN ×2 (11:10→20:20)
--- NOTE | 2020-06-21 11:18 | NUR ---
PATIENT C/O PAIN, MEDICATED ORDERED. WILL CLOSELY MONITOR.
[2020-06-21] MEDS: DEXAMETHASONE SOD PHOS INJ 4 MG/ML VIAL IV SCH (12:39)
[2020-06-21] MEDS: REMDESIVIR 100MG/NS 100ML 100 MG in SODIUM CHLORIDE 0.9% 100 ML 100 ML IV SCH (12:39)
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
--- NOTE | 2020-06-21 15:58 | NUR ---
PATIENT ASSISTED TO THE RESTROOM AND BACK TO BED. ALL PERSONAL ITEMS CLOSE TO PATIENT. CALL LIGHT AT REACH.
--- NOTE | 2020-06-21 17:31 | NUR ---
Nutrition Screen Note RD Recommendation for Physician: - Continue current diet Plan of Care: RD following, monitoring for tolerance and adequacy Nutrition reason for involvement: LOS Primary Diagnose(s): acute respiratory disease due to COVID-19 PMH: pneumonia, COVID-19 Ht: 60 in Wt: 164.13 lb BMI: 32.1 kg/m2 IBW: [address] Assessment: (06/21) 60 YOF admitted for recurrent pneumonia due to COVID-19, evaluated today for LOS. Pt currently on isolation precautions, unable to enter room. Attempted to call pt's room, no answer. No wt loss or poor po intake indicated on admit. Pt with good po intake per chart, 75-100% of meals. No GI distress recorded, last BM 06/20. Chart reviewed. Labs and meds reviewed. Will continue to monitor. Current Diet: Cardiac Malnutrition Evaluation (06/21/20) The patient does not meet criteria for a specified degree of malnutrition at this time. Will re-evaluate at follow-up as appropriate. Unable to assess due to current isolation precautions. Diet Education Needs Assessment: Diet education not indicated. Diet tolerance: tolerating po Nutrition Care Level: Signed: Stefanie Daley RD, LD, [facility]
--- NOTE | 2020-06-21 19:15 | NUR ---
Patient visited in room during nursing rounds. Patient on droplet isolation due to positive COVID test. Pt alert and oriented x3 but has a tendency of forgetting recent information. Pt ambulatory in room prn. On 2L NC. No respiratory distress noted. Pt has intermittent cough. Call bagley within reach. Will monitor pt closely.
[2020-06-21] MEDS: ARIPIPRAZOLE 5 MG TABLET PO SCH (21:00)
--- NOTE | 2020-06-21 22:02 | Progress Note ---
DATE: SUBJECTIVE: The patient is breathing better, still very anxious. PHYSICAL EXAMINATION: VITAL SIGNS: Temperature 98.4, pulse of 75, O2 saturation is 93% on 4 L. HEENT: Head is atraumatic and normocephalic. CHEST: Crackles still on the bases, otherwise clear. HEART: S1 and S2 audible. ABDOMEN: Soft. NEUROLOGIC: Awake and alert. LABORATORY DATA: Reviewed. ASSESSMENT AND PLAN: Ms. Morgan is a 60-year-old female with coronavirus disease 2019 pneumonia. The patient is currently getting remdesivir. We will continue current care. Oxygen as needed to keep the O2 saturation more than or equal to 92%. Continue the patient on Decadron and Lovenox 40 subcu b.i.d. MD ROXANA Cavazos/LORY /[id number]
[2020-06-22] VITALS (8 sets, daily range): BP systolic 98–118; BP diastolic 53–95
[2020-06-22] MEDS: ZOLPIDEM TARTRATE 10 MG TAB PO PRN ×2 (00:08→21:18)
[2020-06-22] MEDS: IPRATROPIUM/ALBUTEROL SULFATE 4 GM INH INH SCH ×4 (01:30→20:00)
[2020-06-22] MEDS: ALPRAZOLAM 1 MG TAB PO SCH ×4 (06:22→18:12)
--- NOTE | 2020-06-22 06:28 | Progress Note ---
DATE: 06/22/2020 SUBJECTIVE: The patient seems to be doing much better. She actually was requiring a little bit less oxygen, yesterday at one point down to 2 L, currently at 4 L, which is better than the previous day at 5 L. She states she is overall feeling much better from when she came in. Coughing is improved. OBJECTIVE: VITAL SIGNS: Stable. She is afebrile. GENERAL: No apparent distress. CARDIOVASCULAR: Regular rate and rhythm. LUNGS: Less rhonchi bilaterally. ABDOMEN: Good bowel sounds. Soft, nontender. EXTREMITIES: No clubbing, cyanosis. NEUROLOGIC: She moves all extremities x4. ASSESSMENT AND PLAN: 1. COVID pneumonia. Continue with current care. 2. Acute respiratory failure with hypoxia. Continue with O2, wean as tolerated. 3. Anxiety. Continue with her Abilify and Xanax. 4. Gastroesophageal reflux disease. Continue with her medication. Please see hospital chart for full details. MD ALEXANDRA Casanova/LORY /[id number]
[2020-06-22] MEDS: ARIPIPRAZOLE 5 MG TABLET PO SCH (09:11)
[2020-06-22] MEDS: ENOXAPARIN SOD INJ 40 MG/0.4 ML SYR SC SCH ×2 (09:11→21:15)
[2020-06-22] MEDS: ASCORBIC ACID 500 MG TAB PO SCH ×2 (09:11→18:12)
[2020-06-22] MEDS: ZINC SULFATE 220 MG CAP PO SCH (09:11)
[2020-06-22 09:22] LABS: BASOPHILS # (AUTO) 0.1 (0.0-0.1); BASOPHILS % 0.5 % (0.0-1.0); EOSINOPHILS % 0.2 % (0.0-6.0); HEMATOCRIT 43.3 % (34.2-44.1); HEMOGLOBIN 13.7 g/dL (12.0-16.0); LYMPHOCYTES # (AUTO) 2.4 (1.0-3.2); LYMPHOCYTES % 16.1 % (18.0-39.1); MEAN CORPUSCULAR HEMOGLOBIN 27.8 pg (28-32); MEAN CORPUSCULAR HGB CONC 31.6 g/dL (31-35); MEAN CORPUSCULAR VOLUME 87.8 fL (81-99); MONOCYTES # (AUTO) 0.5 (0.2-0.8); MONOCYTES % 3.1 % (4.4-11.3); NEUTROPHILS # (AUTO) 10.7 (2.1-6.9); NEUTROPHILS % 71.2 % (38.7-80.0); PLATELET COUNT 396 x10e3/uL (140-360); RED BLOOD COUNT 4.93 x10e6/uL (3.6-5.1); RED CELL DISTRIBUTION WIDTH 13.7 % (11.7-14.4)
[2020-06-22 09:50] LABS: ALANINE AMINOTRANSFERASE 43 IU/L (0-55); ALBUMIN/GLOBULIN RATIO 0.8 (0.8-2.0); ALKALINE PHOSPHATASE 85 IU/L (40-150); ANION GAP 12.5 mmol/L (8-16); BLOOD UREA NITROGEN 19 mg/dL (7-26); BUN/CREATININE RATIO 28 (6-25); CALCIUM 8.8 mg/dL (8.4-10.2); CARBON DIOXIDE 24 mmol/L (22-29); CHLORIDE 104 mmol/L (98-107); CREATININE, SERUM 0.67 mg/dL (0.57-1.11); EST GLOMERULAR FILTRATION RATE > 60 ML/MIN (60-); GLUCOSE 77 mg/dL (74-118); POTASSIUM 3.5 mmol/L (3.5-5.1); SODIUM 137 mmol/L (136-145)
[2020-06-22] MEDS: DEXAMETHASONE SOD PHOS INJ 4 MG/ML VIAL IV SCH (12:59)
[2020-06-22] MEDS: REMDESIVIR 100MG/NS 100ML 100 MG in SODIUM CHLORIDE 0.9% 100 ML 100 ML IV SCH (13:00)
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
--- NOTE | 2020-06-22 15:57 | Diagnostic Imaging Report ---
TECHNIQUE: Frontal view of the chest. INDICATION: ^f/u infiltrates in COVID ^[id number] ^1540 COMPARISON: 06/18/2020 DISCUSSION: Limited evaluation due to portable technique. Lines and hardware: Overlying EKG leads are noted. Heart and mediastinum: Stable. Lungs and pleura: Compared to 06/18/2020 there is interval worsening of bilateral peripheral prominent airspace opacities. Negative for large effusion or pneumothorax. Soft tissues and bones: No acute abnormality. IMPRESSION: Interval worsening of peripheral airspace opacities compared to 06/18/2020. Negative for new effusion or pneumothorax. Signed by: Silvestre Millard MD on 06/22/2020 3:54 PM
--- NOTE | 2020-06-22 16:12 | Diagnostic Imaging Report ---
EXAM: CT Chest WITH contrast- Pulmonary Embolism Protocol INDICATION: ^r/o PE in COVID ^[id number] ^1535 COMPARISON: X-ray dated the same day and 06/18/2020 TECHNIQUE: Chest was scanned utilizing a multidetector helical scanner from the lung apex through the level of the diaphragm after administration of IV contrast. Thin section reconstructions were obtained with special concentration on the pulmonary arteries. Coronal and sagittal reformations were obtained. Pulmonary embolism protocol was performed. IV CONTRAST: 100 cc of Isovue 370 RADIATION DOSE: Total DLP: 513 mGy*cm Dose modulation, iterative reconstruction, and/or weight based adjustment of the mA/kV was utilized to reduce the radiation dose to as low as reasonably achievable. COMPLICATIONS: None FINDINGS: LINES/ TUBES: None. PULMONARY ARTERIES: Main pulmonary artery measures Hounsfield units of 348. Negative for central, lobar or segmental embolism. Further evaluation is limited due to diffuse respiratory motion artifact. Main pulmonary artery is of normal caliber measuring up to 2.0 cm. LUNGS, PLEURA AND AIRWAYS: Large airways are patent. There are multifocal peripheral subpleural groundglass and patchy airspace opacities, predominantly within the perihilar regions. Negative for effusion or pneumothorax. HEART AND MEDIASTINUM: Partially visualized thyroid is unremarkable. No mediastinal, hilar or axillary lymphadenopathy. The heart is normal in size. Negative for right ventricular enlargement or bowing of the interventricular septum. There is no pericardial effusion. Thoracic aorta is of normal caliber with minimal atherosclerotic change. UPPER ABDOMEN: Unremarkable. BONES: No acute osseous abnormality. Mild to moderate multilevel degenerative changes are noted. No suspicious destructive lesion. SOFT TISSUES: Unremarkable. IMPRESSION: 1. Negative for central pulmonary embolism or secondary signs of right heart strain. 2. Peripheral groundglass and patchy airspace opacities consistent with history of Covid pneumonia. Negative for effusion or pneumothorax. Signed by: Silvestre Millard MD on 06/22/2020 4:09 PM
--- NOTE | 2020-06-22 16:21 | NUR ---
HOME 02 EVAL DONE SATS ON ROOM AIR WITH EXERTION 87% CHOICE LETTER SIGNED FOR [facility] PH: [phone] COPY OF CHOICE LETTER TO PT FAXED CLINICAL TO [facility]; CONFIRMATION REC'D SPOKE WITH RADHA AT [facility] WHO IS AWARE OF ORDERS AND OK TO DELIVER PORTABLE TO ROOM SPOKE WITH ALLISON WHO STATES DC PLAN FOR TOMORROW AFTER LAB WORK PORTABLE TANK DELIVERED TO BEDSIDE CONFIRMATION OF ADDRESS AND PHONE NUMBER WITH PATIENT GAVE PT [facility]'S PHONE NUMBER AND ASKED HER TO CALL THEM WHEN SHE ARRIVES HOME FOR DELIVERY OF CONCENTRATOR
[2020-06-22] MEDS ORDERED: SODIUM CHLORIDE 0.9% 50ML 50 ML ONE (17:02)
[2020-06-22] MEDS ORDERED: IOPAMIDOL 370 MG/ML 200 ML INFUS..BTL INJ ONE (17:03)
[2020-06-22] MEDS: TRAMADOL HCL 50 MG TAB PO PRN (18:12)
--- NOTE | 2020-06-22 19:15 | NUR ---
Patient visited in room during nursing rounds. Patient alert and oriented x3 but easily forgets recent information. Pt on 2L NC. On COVID isolation. Pt denies any discomfort or pain at this time. Call bagley within reach. Will monitor closely.
[2020-06-23] VITALS (9 sets, daily range): BP systolic 76–117; BP diastolic 45–79
[2020-06-23] MEDS: ALPRAZOLAM 1 MG TAB PO SCH (00:15)
[2020-06-23] MEDS: IPRATROPIUM/ALBUTEROL SULFATE 4 GM INH INH SCH ×4 (01:00→20:10)
[2020-06-23 06:32] LABS: BASOPHILS # (AUTO) 0.1 (0.0-0.1); BASOPHILS % 0.9 % (0.0-1.0); EOSINOPHILS # (AUTO) 0.1 (0.0-0.4); EOSINOPHILS % 0.4 % (0.0-6.0); HEMATOCRIT 41.7 % (34.2-44.1); HEMOGLOBIN 13.7 g/dL (12.0-16.0); LYMPHOCYTES # (AUTO) 2.1 (1.0-3.2); LYMPHOCYTES % 14.4 % (18.0-39.1); MEAN CORPUSCULAR HEMOGLOBIN 28.8 pg (28-32); MEAN CORPUSCULAR HGB CONC 32.9 g/dL (31-35); MEAN CORPUSCULAR VOLUME 87.6 fL (81-99); MONOCYTES # (AUTO) 0.4 (0.2-0.8); MONOCYTES % 2.5 % (4.4-11.3); NEUTROPHILS # (AUTO) 10.5 (2.1-6.9); NEUTROPHILS % 71.1 % (38.7-80.0); PLATELET COUNT 363 x10e3/uL (140-360); RED BLOOD COUNT 4.76 x10e6/uL (3.6-5.1); RED CELL DISTRIBUTION WIDTH 13.8 % (11.7-14.4)
[2020-06-23 06:38] LABS: CALCIUM IONIZED 1.2 mmol/L (1.09-1.30)
[2020-06-23 06:49] LABS: ALANINE AMINOTRANSFERASE 39 IU/L (0-55); ALBUMIN 2.9 g/dL (3.5-5.0); ALBUMIN/GLOBULIN RATIO 0.7 (0.8-2.0); ALKALINE PHOSPHATASE 91 IU/L (40-150); ANION GAP 15.2 mmol/L (8-16); BLOOD UREA NITROGEN 23 mg/dL (7-26); BUN/CREATININE RATIO 37 (6-25); CALCIUM 8.8 mg/dL (8.4-10.2); CARBON DIOXIDE 21 mmol/L (22-29); CHLORIDE 105 mmol/L (98-107); CREATININE, SERUM 0.63 mg/dL (0.57-1.11); EST GLOMERULAR FILTRATION RATE > 60 ML/MIN (60-); GLUCOSE 67 mg/dL (74-118); POTASSIUM 3.2 mmol/L (3.5-5.1); SODIUM 138 mmol/L (136-145)
[2020-06-23 06:57] LABS: PHOSPHORUS 2.6 MG/DL (2.3-4.7)
--- NOTE | 2020-06-23 08:00 | NUR ---
RECEIVED PT RESTING IN BED. TELE APPLIED. RESPIRATIONS EVEN AND BREATHING UNLABORED. CALL LIGHT WITHIN REACH.
[2020-06-23] MEDS: ZINC SULFATE 220 MG CAP PO SCH (10:16)
[2020-06-23] MEDS: ASCORBIC ACID 500 MG TAB PO SCH ×2 (10:16→18:56)
[2020-06-23] MEDS: ARIPIPRAZOLE 5 MG TABLET PO SCH (10:16)
[2020-06-23] MEDS: ACETAMINOPHEN 325 MG TAB PO PRN ×2 (10:17→19:28)
[2020-06-23] MEDS: ENOXAPARIN SOD INJ 40 MG/0.4 ML SYR SC SCH (10:35)
[2020-06-23] MEDS: DEXAMETHASONE SOD PHOS INJ 4 MG/ML VIAL IV SCH (12:11)
[2020-06-23] MEDS: TRAMADOL HCL 50 MG TAB PO PRN (12:11)
--- NOTE | 2020-06-23 13:21 | Progress Note ---
DATE: SUBJECTIVE: Ms. Morgan is doing better. There are no new complaints. Her white count is 14. Cultures are negative. PHYSICAL EXAMINATION: GENERAL: Currently alert and oriented. Does not seem to be in acute distress. VITAL SIGNS: Stable, currently afebrile. HEENT: She is not icteric. NECK: Supple. CHEST: Clear. HEART: S1 and S2. ABDOMEN: Soft. Bowel sounds present. EXTREMITIES: No edema. SKIN: No rash. IMPRESSION: Leukocytosis, probably due to steroid, COVID-19. The patient will be discharged home to finish 10 days of steroid. Follow up as an outpatient. Discharge with home oxygen. MD MYNOR Castle/LORY /[id number]
--- NOTE | 2020-06-23 16:10 | NUR ---
SPOKE TO DR. ROBERT REGARDING POSSIBLE D/C AND HE STATES PATIENT TO WAIT UNTIL MORNING.
--- NOTE | 2020-06-23 20:11 | NUR ---
PT RESTING IN BED. TELE APPLIED. PT IN STABLE CONDITION. REPORT GIVEN TO ONCOMING NURSE.
[2020-06-23] MEDS ORDERED: ZOLPIDEM TARTRATE 10 MG TAB PO ONE (20:30)
[2020-06-23] MEDS: ALPRAZOLAM 1 MG TAB PO PRN (20:53)
[2020-06-24 00:24] VITALS: BP 112/81
[2020-06-24 06:07] VITALS: BP 123/79
--- NOTE | 2020-06-24 07:09 | NUR ---
bedside shift report received from PM nurse. pt in stable condition.
[2020-06-24 08:00] VITALS: BP 123/79
[2020-06-24] MEDS: ARIPIPRAZOLE 5 MG TABLET PO SCH (09:13)
[2020-06-24] MEDS: ASCORBIC ACID 500 MG TAB PO SCH (09:13)
[2020-06-24] MEDS: ZINC SULFATE 220 MG CAP PO SCH (09:13)
[2020-06-24] MEDS: ALPRAZOLAM 1 MG TAB PO PRN (09:13)
[2020-06-24 09:21] VITALS: BP 112/86
--- NOTE | 2020-06-24 10:16 | Discharge Summary ---
DISCHARGE DIAGNOSES: 1. COVID pneumonia. 2. Acute respiratory failure with hypoxia. 3. Anxiety. HISTORY OF PRESENT ILLNESS AND HOSPITAL COURSE: See hospital chart for full details. The patient is a lady, who was diagnosed as an outpatient COVID. She unfortunately got worse with worsening shortness of breath and hypoxia, so she was brought in. She had CT scan as well as chest x-ray with evidence of COVID pneumonia without pulmonary embolus. She was brought in and placed on enoxaparin, and was seen by Infectious Disease, was given Decadron, remdesivir, Rocephin and azithromycin as well as well oxygen. She did make slow, but steady improvement. At the time of discharge, she was only requiring 2 L of nasal cannula. Her highest level was 5 L. She completed her remdesivir and she was going to be discharged home with 5 more days of Decadron as well as some Diflucan for thrush. She will follow up in 1 week with me. Please see also chart for full details. MD ALEXANDRA Casanova/LORY /[id number]
[2020-06-24] MEDS: DEXAMETHASONE SOD PHOS INJ 4 MG/ML VIAL IV SCH (12:00)
== END 2020-06-24 13:10 | disposition home or self-care (01) | DRG 177 ==
LOC: ER 13:43 → ERHOLD 13:53 → IMCU 15:29 → MED/SURG3 06-17 18:54
PROVIDERS: ADMIT Internal Medicine; ATTEND Internal Medicine
PROC: 8E0ZXY6 Isolation (ICD-10-PCS; principal; 2020-06-15)
PROC: XW033E5 Introduction of Remdesivir Anti-infective into Peripheral Vein, Percutaneous Approach, New Technology Group 5 (ICD-10-PCS; 2020-06-18)
DX: U07.1 COVID-19 (principal); J12.9 Viral pneumonia, unspecified; J96.00 Acute respiratory failure, unspecified whether with hypoxia or hypercapnia; J96.01 Acute respiratory failure with hypoxia; J15.9 Unspecified bacterial pneumonia; D72.828 Other elevated white blood cell count; T38.0X5A Adverse effect of glucocorticoids and synthetic analogues, initial encounter; F41.9 Anxiety disorder, unspecified; E66.9 Obesity, unspecified; Z68.32 Body mass index [BMI] 32.0-32.9, adult; K21.9 Gastro-esophageal reflux disease without esophagitis; F90.9 Attention-deficit hyperactivity disorder, unspecified type
CPT/HCPCS: 36415; 70450; 71045; 71260; 80053; 81001; 82550; 82553; 82948; 83605; 83735; 83880; 84100; 84484; 85025; 85379; 87040; 87070; 87086; 87205; 93005; 94664; 99284; J0456; J0696; J1100; J1650; J7030; J7040; Q9967

== ENCOUNTER 2021-05-09 07:23 | Observation (INO) | payer OTHER ==
[2021-04-25 10:24] LABS: BASOPHILS % 0.5 % (0.0-1.0); EOSINOPHILS # (AUTO) 0.3 (0.0-0.4); EOSINOPHILS % 4.6 % (0.0-6.0); HEMATOCRIT 42.8 % (34.2-44.1); HEMOGLOBIN 12.9 g/dL (12.0-16.0); LYMPHOCYTES # (AUTO) 2.6 (1.0-3.2); LYMPHOCYTES % 44.7 % (18.0-39.1); MEAN CORPUSCULAR HEMOGLOBIN 26.3 pg (28-32); MEAN CORPUSCULAR HGB CONC 30.1 g/dL (31-35); MEAN CORPUSCULAR VOLUME 87.3 fL (81-99); MONOCYTES # (AUTO) 0.6 (0.2-0.8); MONOCYTES % 9.7 % (4.4-11.3); NEUTROPHILS # (AUTO) 2.4 (2.1-6.9); NEUTROPHILS % 40.3 % (38.7-80.0); PLATELET COUNT 230 x10e3/uL (140-360); RED CELL DISTRIBUTION WIDTH 14.9 % (11.7-14.4)
[~2021-05-09] VITALS: Ht 152.4 cm; Wt 81.2 kg
[2021-05-09] VITALS (7 sets, daily range): BP systolic 98–115; BP diastolic 55–75
[~2021-05-09 07:23] MED LIST: ABILIFY5 MG PO; ADDERALL 30 MG30 MG PO; ALPRAZOLAM1 MG PO; AMBIEN10 MG PO; ARMOUR THYROID60 MG PO; ATORVASTATIN CA20 MG PO; CELEXA20 MG PO; DEXAMETHASONE4 MG PO; MULTI-VITAMIN1 EACH; ROPIVACAINE 246.25 MG, EPINEPHRINE HCL 1:1000 1ML 0.5 MG, CLONIDINE HCL 0.08 MG, KETORO... INJ ONE; ULTRAM50 MG PO
[2021-05-09] MEDS ORDERED: CELECOXIB 200 MG CAP ONE (07:55)
[2021-05-09] MEDS ORDERED: DEXAMETHASONE SOD PHOS 10 MG/1 ML VIAL ONE (07:55)
[2021-05-09] MEDS ORDERED: SODIUM CHLORIDE 0.9% 50ML 100 ML ONE (07:56)
[2021-05-09] MEDS ORDERED: GABAPENTIN 300 MG CAP ONE (07:56)
[2021-05-09] MEDS ORDERED: SODIUM CHLORIDE 0.9% 500ML 500 ML ONE (08:34)
[2021-05-09] MEDS ORDERED: Vancomycin IV 1,000 MG ONE (08:35)
[2021-05-09] MEDS ORDERED: TRANEXAMIC ACID 1,000 MG/10 ML ML ONE (08:35)
[2021-05-09] MEDS ORDERED: ONDANSETRON HCL INJ 2MG/ML 2ML 2 MG/ML VIAL IV PRN (11:30)
[2021-05-09] MEDS ORDERED: DIPHENHYDRAMINE HCL INJ 50 MG/ML VIAL IV PRN (11:30)
[2021-05-09] MEDS ORDERED: DOCUSATE SODIUM 100 MG CAP PO PRN (11:30)
[2021-05-09] MEDS ORDERED: HYDROCODONE/APAP 5MG-325MG TAB PO PRN (11:30)
[2021-05-09] MEDS ORDERED: ACETAMINOPHEN 650 MG SUPP PR PRN (11:30)
[2021-05-09] MEDS: SODIUM CHLORIDE 0.9% 1000ML 1,000 ML IV SCH ×2 (11:30→19:20)
[2021-05-09] MEDS ORDERED: ACETAMINOPHEN 1000 MG/100 ML IV PRN (15:00)
[2021-05-09] MEDS ORDERED: SODIUM CHLORIDE 0.9% 50ML 50 ML ONE (15:57)
[2021-05-09] MEDS: HYDROCODONE/APAP 7.5MG-325MG 1 EA TAB PO PRN ×2 (17:10→22:58)
[2021-05-09] MEDS: ASPIRIN 325 MG TAB PO SCH (17:14)
[2021-05-09] MEDS: CELECOXIB 100 MG CAP PO SCH (17:14)
[2021-05-09] MEDS: Cefazolin 1 GM in SODIUM CHLORIDE 0.9% 50ML 50 ML IV SCH (17:14)
[2021-05-09] MEDS ORDERED: ZOLPIDEM TARTRATE 5 MG TAB PO PRN (21:00)
[2021-05-10] MEDS: Cefazolin 1 GM in SODIUM CHLORIDE 0.9% 50ML 50 ML IV SCH ×2 (02:00→11:03)
[2021-05-10 04:00] VITALS: BP 90/59
[2021-05-10] MEDS ORDERED: ALPRAZOLAM 1 MG TAB PO PRN (04:45)
[2021-05-10 05:24] LABS: HEMATOCRIT 35.4 % (34.2-44.1); HEMOGLOBIN 11.5 g/dL (12.0-16.0)
[2021-05-10 07:25] VITALS: BP 91/68
[2021-05-10 08:03] VITALS: BP 91/68
[2021-05-10] MEDS: ASPIRIN 325 MG TAB PO SCH (08:51)
[2021-05-10] MEDS: CELECOXIB 100 MG CAP PO SCH (08:51)
[2021-05-10] MEDS ORDERED: CITALOPRAM HYDROBROMIDE 20 MG TAB PO SCH (09:00)
[2021-05-10] MEDS ORDERED: THYROID 60 MG TAB PO SCH (09:00)
[2021-05-10 11:32] VITALS: BP 97/65
[2021-05-10] MEDS ORDERED: ATORVASTATIN 40 MG TAB PO SCH (21:00)
== END 2021-05-10 13:47 | disposition home or self-care (01) ==
LOC: OR 07:23 → PACU V 11:30 → MED/SURG 12:21 → MED/SURG3 22:50
PROVIDERS: ADMIT Specialist; ATTEND Specialist
DX: M87.851 Other osteonecrosis, right femur (principal); Z01.818 Encounter for other preprocedural examination; Z20.822 Contact with and (suspected) exposure to COVID-19; F90.9 Attention-deficit hyperactivity disorder, unspecified type; F32.9 Major depressive disorder, single episode, unspecified
CPT/HCPCS: 27130; 36415 ×2; 72170; 85014; 85018; 85025; 86850; 86900; 86920; 93005; 97110; 97116; 97162; 97530 ×2; C1713 ×2; C1776 ×2; G0378 ×2; J0171 ×2; J0690 ×2; J1100; J1885 ×2; J2795 ×2; J3370; J7030; J7040; U0002 ×2